=== PATIENT | female | born 1970 | race Caucasian/White ===

== ENCOUNTER 2016-09-10 12:17 | Emergency (ER) | payer OTHER ==
[~2016-09-10] VITALS: Ht 157.5 cm; Wt 52.6 kg
[2016-09-10 16:06] LABS: BASOPHIL % 0.2 % (0-2); PLATELET COUNT 223 x10^3mcL (130-400); RED CELL DISTRIBUTION WIDTH 13.3 % (11.5-14.5)
[2016-09-10 18:00] VITALS: BP 136/94
== END 2016-09-10 19:31 | disposition home or self-care (01) ==
LOC: ED 12:17
DX: N93.8 Other specified abnormal uterine and vaginal bleeding (principal)
CPT/HCPCS: 36415

== ENCOUNTER 2016-10-14 12:07 | Emergency (ER) | payer OTHER ==
[2016-10-14 15:00] VITALS: BP 120/78
== END 2016-10-14 15:00 | disposition home or self-care (01) ==
LOC: ED 12:07
DX: S16.1XXA Strain of muscle, fascia and tendon at neck level, initial encounter (principal); Z88.2 Allergy status to sulfonamides; V49.40XA Driver injured in collision with unspecified motor vehicles in traffic accident, initial encounter; Y93.89 Activity, other specified; Y92.89 Other specified places as the place of occurrence of the external cause; Y99.8 Other external cause status

== ENCOUNTER 2018-05-13 02:45 | Emergency (ER) | payer OTHER ==
[~2018-05-13] VITALS: Ht 157.5 cm; Wt 56.7 kg
[2018-05-13 02:50] VITALS: Ht 157.5 cm; Wt 56.7 kg
[2018-05-13 04:42] LABS: BASOPHIL % 0.1 % (0-2); PLATELET COUNT 184 x10^3mcL (130-400); RED CELL DISTRIBUTION WIDTH 13.1 % (11.5-14.5)
[2018-05-13 04:54] LABS: CALCIUM 8.8 mg/dL (8.5-10.1); CHLORIDE SERUM 102 mmol/L (98-107); CREATININE SERUM 0.5 mg/dL (0.6-1.0); GFR1 > 60 mL/min; GLUCOSE SERUM 125 mg/dL (74-106); POTASSIUM SERUM 4.4 mmol/L (3.5-5.1); SODIUM SERUM 138 mmol/L (136-145)
[2018-05-13 04:59] LABS: ALBUMIN 4.3 g/dL (3.4-5.0); ALKALINE PHOSPHATASE 73 U/L (46-116); ALT/SGPT 24 U/L (14-59); AST/SGOT 26 U/L (15-37); LIPASE 228 IU/L (73-393); TOTAL PROTEIN, SERUM 8.4 g/dL (6.4-8.2)
[2018-05-13 06:44] LABS: microscopic required? YES; urine erythrocyte 2+ (NEGATIVE)
[2018-05-13 10:16] VITALS: BP 114/66
== END 2018-05-13 10:14 | disposition home or self-care (01) ==
LOC: ED 02:45
PROVIDERS: Emergency Medicine
DX: R10.9 Unspecified abdominal pain (principal); Z88.2 Allergy status to sulfonamides; N83.209 Unspecified ovarian cyst, unspecified side
CPT/HCPCS: J1885; J2270; J2405; J2765; Q0162

== ENCOUNTER 2018-12-24 04:52 | Emergency (ER) | payer OTHER ==
[~2018-12-24] VITALS: Ht 157.5 cm; Wt 56.7 kg
[2018-12-24 05:00] VITALS: Ht 157.5 cm; Wt 56.7 kg
[2018-12-24 06:29] VITALS: BP 126/54
== END 2018-12-24 06:29 | disposition home or self-care (01) ==
LOC: ED 04:52
DX: K06.8 Other specified disorders of gingiva and edentulous alveolar ridge (principal)